=== PATIENT | female | born 1945 | race Caucasian/White ===

== ENCOUNTER → 2023-06-09 11:17 | Outpatient (REF) | payer MEDICARE, SELFPAY | LOC: DHCBC/DCA 11:17 | PROVIDERS: ATTENDING PHYSICIAN Internal Medicine Cardiovascular Disease; FAMILY PHYSICIAN Family Medicine | DX: R06.09 Other forms of dyspnea (principal) | CPT/HCPCS: 78452; 93017; A9500; J2785 ==

== ENCOUNTER → 2023-06-11 06:35 | Day surgery (SDC) | payer MEDICARE, SELFPAY | LOC: GI 06:35 | PROVIDERS: ATTENDING PHYSICIAN Internal Medicine Gastroenterology | DX: Z12.11 Encounter for screening for malignant neoplasm of colon (principal); Z80.0 Family history of malignant neoplasm of digestive organs; Z86.010 Personal history of colon polyps; K57.30 Diverticulosis of large intestine without perforation or abscess without bleeding; K64.8 Other hemorrhoids; K62.89 Other specified diseases of anus and rectum; D12.2 Benign neoplasm of ascending colon; D12.3 Benign neoplasm of transverse colon; D12.8 Benign neoplasm of rectum; K63.5 Polyp of colon | CPT/HCPCS: 45385; 88305 ==

== ENCOUNTER → 2023-07-07 11:13 | Outpatient (REF) | payer MEDICARE, SELFPAY | LOC: WDC 11:13 | PROVIDERS: ATTENDING PHYSICIAN Family Medicine | DX: Z12.31 Encounter for screening mammogram for malignant neoplasm of breast (principal) | CPT/HCPCS: 77063; 77067 ==

== ENCOUNTER → 2023-07-16 13:47 | Outpatient (REF) | payer MEDICARE, SELFPAY | LOC: RCS 13:47 | PROVIDERS: ATTENDING PHYSICIAN Internal Medicine Cardiovascular Disease; FAMILY PHYSICIAN Family Medicine | DX: I34.0 Nonrheumatic mitral (valve) insufficiency (principal) | CPT/HCPCS: 93306 ==

== ENCOUNTER 2023-08-20 12:52 | Emergency (ER) | payer MEDICARE, SELFPAY ==
[2023-08-20 12:55] VITALS: BP 165/80
[2023-08-20 13:20] LABS: % Basophils 0.7 % (0-2); % Eosinophils 3.1 % (0-6); % Immature Granulocytes 0.5 % (0-0.5); % Lymphocytes 21.9 % (20.5-51.1); % Monocytes 11.3 % (1.7-9.3); % Neutrophils 62.5 % (42.2-75.2); Absolute Eosinophils 0.2 10^3/uL (0-0.7); Absolute Lymphocytes 1.3 10^3/uL (1.2-3.4); Absolute Monocytes 0.7 10^3/uL (0.1-0.6); Absolute Neutrophils 3.7 10^3/uL (1.4-6.5); Hematocrit 33.8 % (37.0-47.0); Mean Corp Hgb Conc. 35.5 g/dL (33.0-37.0); Mean Corpuscular Hgb 31.7 pg (27.0-31.0); Mean Corpuscular Volume 89.2 fL (81.0-99.0); Mean Platelet Volume 9.2 fL (7.4-10.4); Nucleated Red Blood Cells % 0 %; Platelet Count 201 10^3/uL (130-400); Red Blood Cell Count 3.79 10^6/uL (4.20-5.40); Red Cell Dist. Width 14.2 % (11.5-14.5); White Blood Cell Count 5.8 10^3/uL (4.8-10.8)
[2023-08-20 13:31] LABS: INR 0.99; PT 13.1 Sec (11.4-14.6)
[2023-08-20 13:33] LABS: ALT (SGPT) 23 U/L (0-35); AST (SGOT) 22 U/L (14-36); Albumin 4.4 g/dl (3.5-5.0); Alkaline Phosphatase 102 U/L (38-126); Blood Urea Nitrogen 17 mg/dl (7-17); Calcium 9.7 mg/dl (8.4-10.2); Carbon Dioxide 24 mmol/L (22-30); Chloride 100 mmol/L (98-107); Glucose 93 mg/dl (70-99); Potassium 3.9 mmol/L (3.5-5.1); Sodium 134 mmol/L (135-145); Total Bilirubin 0.6 mg/dl (0.2-1.3); eGFR > 60.00
[2023-08-20 13:35] VITALS: BMI 26.5
[2023-08-20 13:45] LABS: Troponin I < 0.012 ng/ml
[2023-08-20 13:51] VITALS: BP 139/83
[2023-08-20 14:00] VITALS: BP 124/68
[2023-08-20 15:00] VITALS: BP 153/80
--- NOTE | 2023-08-20 15:14 | ED.GENMED ---
History of Present Illness
General
Chief Complaint: Cardiac Symptoms
Source: patient and spouse
Time Seen by Provider: 08/20/23 14:54
Travel History
Have you had any contact with someone who has COVID-19?: No
Do you have any symptoms of coronavirus? Fever > 100 degrees, chills, cough, shortness of breath, sore throat, loss of taste or smell, muscle aches, or headache?: No
History of Present Illness
History of Present Illness:
This patient is a 77-year-old female presents emergency department complaints of palpitations. She has a history of palpitations, and has had a workup including a monitor that she wore for a week, an echo, and a stress test recently, all of which
were generally unremarkable. She was recently prescribed Inderal to use as needed for palpitations but is never used it until today. She describes noticing the gradual onset of a racing heart and looked at a pulse ox that she attached and it was
in the 160s. She describes the rate is fluctuating between the 150s and 160s. She did not feel chest pain, dyspnea, or other symptoms except 'feeling funny'. She took the prescribed dose of propranolol, 10 mg, and noticed over a period of about
10 to 15 minutes that her heart rate gradually declined to the high 90s. After taking the medication she said she felt a little 'jittery', but that is since resolved. Patient is now asymptomatic. She does report recent stressors in her life. She
denies associated chest pain, dyspnea, neck pain, jaw pain, lightheadedness, back pain, leg swelling, recent immobilization, recent trauma, or other complaints.
Past History
Past History
ED Past Medical History: Other (Hypothyroidism, glaucoma, dry eye)
ED Past Surgical History: Orthopedic
Social History
Tobacco: Non-smoker
Alcohol: None
Drug: None
Personal:
Living: with family
Phy Exam
Physical Exam
Physical Exam:
GENERAL: Alert , in no apparent distress
EYE: pupils equal and reactive
NECK: Supple, no significant adenopathy.
ENT: o/p clr, mmm.
CARDIAC: Regular rate and rhythm .
LUNGS: Clear breath sounds bilaterally, no acute respiratory distress, no wheezes/rales/rhonchi
ABDOMEN: Soft, without focal tenderness, no r/g, no cvat
NEUROLOGICAL: Alert and oriented, no focal neuro deficits
SKIN: Warm and dry, skin intact.
MUSCULOSKELETAL: No edema, well perfused.
PSYCH: Normal and appropriate interaction.
Course
Orders/Labs/Results
Orders:
Orders
08/20/23 12:56
EKG [Electrocardiogram (*1)] Urgent
Reason for Study: Palpitations
08/20/23 12:57
EKG- Treatment ONCE
08/20/23 13:10
Complete Blood Count/With Diff Urgent
Comprehensive Metabolic Panel Urgent
Prothrombin Time Urgent
Troponin I Urgent
Abnormal Lab Results
08/20/23
13:10
RBC 3.79 L 10^6/uL
(4.20-5.40)
Hct 33.8 L %
(37.0-47.0)
MCH 31.7 H pg
(27.0-31.0)
Absolute Monos (auto) 0.7 H 10^3/uL
(0.1-0.6)
Monocytes % 11.3 H %
(1.7-9.3)
Sodium 134 L mmol/L
(135-145)
08/20/23 13:10
08/20/23 13:10
Vital Signs
Initial and Last Documented VS:
Initial Vital Signs
Temp Pulse Resp BP Pulse Ox
98.7 F 81 17 165/80 99
08/20/23 12:55 08/20/23 12:55 08/20/23 12:55 08/20/23 12:55 08/20/23 12:55
Last Documented Vital Signs
Temp Pulse Resp BP Pulse Ox
98.7 F 80 14 153/80 99
08/20/23 12:55 08/20/23 15:00 08/20/23 15:00 08/20/23 15:00 08/20/23 15:00
*Critical Care Note
Total Time (30-74mins, 75-104mins- exclusive of procedures): Not Applicable
Update Note
Update Note:
Patient presents to the Emergency Department with ___palpitations
Number and Complexity of Problems Addressed at the Encounter
� Chronic conditions affecting care:
� Acute Exacerbation and/or Progression of Chronic Illness:
� Differential Diagnosis includes: But not limited to anxiety, SVT, sinus tachycardia, A-fib, etc.
Amount and/or Complexity of Data to be Reviewed and Analyzed
� I performed an independent evaluation of and my interpretation is:
EKG: Read by me, first-degree heart block, no acute ischemia, otherwise NAD
CT:
Xrays:
Laboratory Studies: Generally unremarkable, TSH added as an added
Other:
� Review of other/old records reveals: Patient had a echocardiogram in July 2023 which showed stage I diastolic dysfunction, otherwise generally unremarkable but for MR
� Clinical information was obtained by an independent historian: and son who are at bedside
� Prescriptions/Medications Considered but not given:
� Further testing considered but not performed:
Risk of Complications and/or Morbidity or Mortality of Patient Management
� Social determinants of health affecting care:
� Discussion with other providers (PCP, Hospitalists, Consultants, etc): Text sent to cardiology, Dr. HICKMAN ER alerting of patient's evaluation workup here and our recommendations for follow-up.
� Escalation of care including admission/observation vs risk of discharge considered: Patient remains asymptomatic and comfortable here with normal vital signs. I did recognize her slightly elevated blood pressure and need for
follow-up regarding. Discussed with patient importance of follow-up and reasons to return the emergency department. TSH at this time is pending, will alert patient had normal.
ED Attending Note
-
Portions of this chart may have been created with voice recognition software.� Occasional wrong word or��sound alike� substitutions may have occurred due to the inherent limitations of voice recognition software.
Discharge Plan
Departure
Patient Disposition: Home (Routine Discharge)
Date of Disposition: 08/20/23
Time of Disposition: 15:15
Patient with high blood pressure during this ER visit?: Yes
Condition: Good
Discharge Problem:
Palpitations
Instructions: Palpitations (DC), BLOOD PRESSURE
Referrals:
Fany Olivo MD [Family Provider] -
Jenny Oglesby MD [Active] - Next open appointment
Activity Restrictions/Additional Instructions:
IF YOU DEVELOP FEVER, TROUBLE BREATHING, CHEST PAIN, PERSISTENT PALPITATIONS,DIZZINESS, NAUSEA, OR OTHER WORRISOME SIGNS, GO TO THE ER IMMEDIATELY!
Interventions
Interventions:
*Risk Screen - Suicide Last Done: 08/20/23 12:56
*General Assessment Last Done: 08/20/23 12:56
*Neglect/Abuse Screening Last Done: 08/20/23 12:56
ED- Fall Risk Assessment Last Done: 08/20/23 13:30
*ED COVID-19 Vaccine History Last Done: 08/20/23 12:56
ED- Pulmonary Assessment Last Done: 08/20/23 13:35
ED- Cardiac Assessment Last Done: 08/20/23 13:35
Discharge Date and Time
Print Language: MALAWIAN
[2023-08-20 16:40] LABS: TSH 0.89 uIU/ml (0.47-4.68)
== END 2023-08-20 15:38 | disposition home or self-care (01) ==
LOC: EMR 12:52
PROVIDERS: Emergency Medicine; EMERGENCY PHYSICIAN Emergency Medicine; FAMILY PHYSICIAN Family Medicine
DX: R00.2 Palpitations (principal); E03.9 Hypothyroidism, unspecified; H40.9 Unspecified glaucoma; H04.129 Dry eye syndrome of unspecified lacrimal gland
CPT/HCPCS: 99283; 80053; 84443; 84484; 85025; 85610; 93005

== ENCOUNTER → 2023-08-28 11:47 | Day surgery (SDC) | payer MEDICARE, SELFPAY ==
--- NOTE | 2023-08-28 15:34 | ITS.CL.IMPLP ---
[employer] - Implant Loop
Implant Loop
Procedure Report:
Primary Physician: Fany Olivo MD
Primary Charge Hand: Jenny Oglesby MD
Procedure Date: 08/28/2023
Procedure: Placement of a loop recorder.
History/Indication:
1. See office H&P for complete history.
2. Patient is a pleasant 77-year-old female with a past medical history significant for MR, hypercholesterolemia, coronary calcium, significant palpitations with brief PAT undergoing elective long-term monitor due to further arrhythmia evaluation
and monitoring.
Method:
After informed consent was obtained, the patient was brought to the EP laboratory holding area in a fasting, non-sedated state. Peripheral access was established. The left chest was prepared and draped in a sterile fashion. A 'time out' was
called. Local anesthesia was injected in the subcutaneous tissue. The ILR was injected under the skin. Topical skin adhesive was applied. Following the procedure, the patient was taken to the recovery area in stable condition. No complications
were noted.
Device Data:
[employer]; Model# LINQII; Serial# [id number]
Conclusion:
Successful placement of a loop recorder.
Recommendations:
1. Follow-up will be arranged in the [facility] in 7-10 days for wound check.
2. Routine ILR care.
Drew Camara DO
Clinical Cardiac Lost And Found Clerk
cc: Fany Olivo MD; Jenny Oglesby MD; Taylor DOSS
== END | disposition home or self-care (01) ==
LOC: CATH 11:47
PROVIDERS: ATTENDING PHYSICIAN Internal Medicine Cardiovascular Disease; FAMILY PHYSICIAN Family Medicine; OTHER PHYSICIAN Internal Medicine Cardiovascular Disease
DX: Z09 Encounter for follow-up examination after completed treatment for conditions other than malignant neoplasm (principal); I34.0 Nonrheumatic mitral (valve) insufficiency; E78.00 Pure hypercholesterolemia, unspecified; R00.2 Palpitations
CPT/HCPCS: 33285; C1764

== ENCOUNTER → 2023-10-28 08:15 | Outpatient (REF) | payer MEDICARE, SELFPAY ==
[2023-10-28 10:20] LABS: ALT (SGPT) 36 U/L (0-35); AST (SGOT) 30 U/L (14-36); Albumin 4.5 g/dl (3.5-5.0); Alkaline Phosphatase 99 U/L (38-126); Blood Urea Nitrogen 14 mg/dl (7-17); Calcium 9.4 mg/dl (8.4-10.2); Carbon Dioxide 25 mmol/L (22-30); Chloride 103 mmol/L (98-107); Glucose 90 mg/dl (70-99); HDL Cholesterol 88 mg/dl; LDL Cholesterol, Calculated 93 mg/dl; Potassium 4.3 mmol/L (3.5-5.1); Sodium 135 mmol/L (135-145); Total Bilirubin 0.6 mg/dl (0.2-1.3); Total Cholesterol 192 mg/dl (50-199); Triglyceride 57 mg/dl (10-149); Very Low Density Lipoprotein 11 mg/dl (0-30); eGFR > 60.00
[2023-10-28 10:48] LABS: TSH Reflex To Free T4 0.15 uIU/ml (0.47-4.68)
[2023-10-28 11:18] LABS: Free T4 1.83 ng/dl (0.78-2.19)
== END ==
LOC: REG 08:15
PROVIDERS: ATTENDING PHYSICIAN Family Medicine; REFERRING PHYSICIAN Internal Medicine Cardiovascular Disease
DX: Z00.00 Encounter for general adult medical examination without abnormal findings (principal); E78.00 Pure hypercholesterolemia, unspecified; E03.9 Hypothyroidism, unspecified
CPT/HCPCS: 36415; 80053; 80061; 84439; 84443

== ENCOUNTER → 2023-11-11 14:27 | Outpatient (REF) | payer MEDICARE, SELFPAY | LOC: RAD 14:27 | PROVIDERS: ATTENDING PHYSICIAN Family Medicine | DX: M25.551 Pain in right hip (principal); M25.552 Pain in left hip; M54.41 Lumbago with sciatica, right side; M54.42 Lumbago with sciatica, left side | CPT/HCPCS: 72110; 73523 ==

== ENCOUNTER → 2024-01-12 11:48 | Outpatient (REF) | payer MEDICARE, SELFPAY ==
[2024-01-12 13:57] LABS: TSH Reflex To Free T4 0.17 uIU/ml (0.47-4.68)
[2024-01-12 14:27] LABS: Free T4 1.62 ng/dl (0.78-2.19)
== END ==
LOC: REG 11:48
PROVIDERS: ATTENDING PHYSICIAN Family Medicine
DX: R79.89 Other specified abnormal findings of blood chemistry (principal)
CPT/HCPCS: 36415; 84439; 84443

== ENCOUNTER → 2024-02-19 15:11 | Outpatient (REF) | payer MEDICARE, SELFPAY | LOC: PAVMRI 15:11 | PROVIDERS: ATTENDING PHYSICIAN Physician Assistant; FAMILY PHYSICIAN Family Medicine | DX: M54.16 Radiculopathy, lumbar region (principal) | CPT/HCPCS: 72148 ==

== ENCOUNTER → 2024-04-21 11:06 | Outpatient (REF) | payer MEDICARE, SELFPAY ==
[2024-04-21 12:45] LABS: TSH Reflex To Free T4 2.06 uIU/ml (0.47-4.68)
== END ==
LOC: REG 11:06
PROVIDERS: ATTENDING PHYSICIAN Family Medicine
DX: E03.9 Hypothyroidism, unspecified (principal)
CPT/HCPCS: 36415; 84443

== ENCOUNTER → 2024-07-12 10:59 | Outpatient (REF) | payer MEDICARE, SELFPAY | LOC: WDC 10:59 | PROVIDERS: ATTENDING PHYSICIAN Family Medicine | DX: Z12.31 Encounter for screening mammogram for malignant neoplasm of breast (principal) | CPT/HCPCS: 77063; 77067 ==

== ENCOUNTER 2024-12-14 06:22 | Day surgery (SDC) | payer MEDICARE, SELFPAY ==
[2024-12-01 08:55] LABS: Hematocrit 36.5 % (37.0-47.0); Hemoglobin 12.3 g/dL (12.0-16.0); Mean Corp Hgb Conc. 33.7 g/dL (33.0-37.0); Mean Corpuscular Volume 93.1 fL (81.0-99.0); Nucleated Red Blood Cells % 0 %; Platelet Count 243 10^3/uL (130-400); Red Cell Dist. Width 14.8 % (11.5-14.5)
[2024-12-01 10:00] LABS: ALT (SGPT) 46 U/L (0-35); AST (SGOT) 27 U/L (14-36); Albumin 4.4 g/dl (3.5-5.0); Alkaline Phosphatase 140 U/L (38-126); Blood Urea Nitrogen 17 mg/dl (7-17); Calcium 9.1 mg/dl (8.4-10.2); Carbon Dioxide 26 mmol/L (22-30); Chloride 102 mmol/L (98-107); Glucose 83 mg/dl (70-99); HDL Cholesterol 72 mg/dl; LDL Cholesterol, Calculated 109 mg/dl; Potassium 4.0 mmol/L (3.5-5.1); Sodium 136 mmol/L (135-145); Total Protein 7.2 g/dl (6.3-8.2); Very Low Density Lipoprotein 13 mg/dl (0-30); eGFR > 60.00
[2024-12-01 14:03] VITALS: BMI 26.1
[2024-12-14] VITALS (13 sets, daily range): BP systolic 105–139; BP diastolic 58–96; BMI 26.1
[2024-12-14] MEDS: HEPARIN 5000 UNITS SC (09:21)
[2024-12-14] MEDS: NORMOSOL-R/PLASMALYTE-A 1000 IV (09:22)
--- NOTE | 2024-12-14 14:10 | PTCARENOTE ---
Report given to Farrah KEEN.
== END 2024-12-14 16:30 | disposition home or self-care (01) ==
LOC: SDS 06:22
PROVIDERS: ATTENDING PHYSICIAN Obstetrics & Gynecology; FAMILY PHYSICIAN Family Medicine; OTHER PHYSICIAN Family Medicine
DX: N81.2 Incomplete uterovaginal prolapse (principal); N39.3 Stress incontinence (female) (male); N39.41 Urge incontinence; N36.41 Hypermobility of urethra
CPT/HCPCS: 57282; 57260; 36415; 80053; 80061; 84439; 84443; 85025; 86850; 86900; 86901

== ENCOUNTER → 2025-01-13 12:17 | Outpatient (REF) | payer MEDICARE, SELFPAY ==
[2025-01-13 13:53] LABS: ALT (SGPT) 72 U/L (0-35); AST (SGOT) 36 U/L (14-36); Albumin 4.3 g/dl (3.5-5.0); Alkaline Phosphatase 148 U/L (38-126); Total Protein 7.1 g/dl (6.3-8.2)
== END ==
LOC: REG 12:17
PROVIDERS: ATTENDING PHYSICIAN Family Medicine
DX: E03.9 Hypothyroidism, unspecified (principal); R79.89 Other specified abnormal findings of blood chemistry
CPT/HCPCS: 36415; 80076; 84439; 84443

== ENCOUNTER → 2025-01-24 09:28 | Outpatient (REF) | payer MEDICARE, SELFPAY | LOC: HWRAD 09:28 | PROVIDERS: ATTENDING PHYSICIAN Family Medicine | DX: R74.8 Abnormal levels of other serum enzymes (principal) | CPT/HCPCS: 76700 ==

== ENCOUNTER → 2025-02-11 13:51 | Outpatient (REF) | payer MEDICARE, SELFPAY ==
[2025-02-11 15:15] LABS: ALT (SGPT) 59 U/L (0-35); AST (SGOT) 32 U/L (14-36); Albumin 4.6 g/dl (3.5-5.0); Alkaline Phosphatase 129 U/L (38-126); Total Protein 7.6 g/dl (6.3-8.2)
[2025-02-11 15:52] LABS: Hepatitis B Surface Antigen Negative (Negative)
[2025-02-11 16:09] LABS: Hepatitis A Antibody, Total Positive (Negative); Hepatitis C Antibody Negative (Negative)
== END ==
LOC: REG 13:51
PROVIDERS: ATTENDING PHYSICIAN Family Medicine
DX: R74.8 Abnormal levels of other serum enzymes (principal)
CPT/HCPCS: 36415; 80076; 86706; 86708; 86709; 86803; 87340

== ENCOUNTER → 2025-03-11 10:57 | Outpatient (REF) | payer MEDICARE, SELFPAY | LOC: REG 10:57 | PROVIDERS: ATTENDING PHYSICIAN Family Medicine | DX: E03.9 Hypothyroidism, unspecified (principal) | CPT/HCPCS: 36415; 84443 ==